=== PATIENT | male | born 1985 | race Two or more races ===

== ENCOUNTER 2023-11-02 23:41 | Inpatient (IN) | payer MEDICAID ==
[~2023-11-02] VITALS: Ht 144.8 cm; Wt 59.4 kg
[2023-11-03] VITALS (7 sets, daily range): BP systolic 120–147; BP diastolic 71–92; PULSE 78–99; RESP 16–18; TEMP 97.8–98.6; O2SAT 97–100
[2023-11-03 01:33] LABS: ANION GAP 14 mmol/L (8-16); CALCIUM, TOTAL 9.4 mg/dL (8.8-10.5); CARBON DIOXIDE 25 mmol/L (22-29); CHLORIDE 99 mmol/L (98-107); CREATININE 0.88 mg/dL (0.60-1.30); GLOMERULAR FILTR. RATE CALC > 60 mL/min (>60); GLUCOSE,RANDOM 325 mg/dL (70-110); POTASSIUM 3.5 mmol/L (3.5-5.1); SODIUM SERUM 138 mmol/L (136-145); UREA NITROGEN, BLOOD 10 mg/dL (7-18)
[2023-11-03 01:39] LABS: ALANINE AMINOTRANSFERASE 35 U/L (12-78); ALBUMIN 3.9 g/dL (3.4-5.0); ALKALINE PHOSPHATASE 115 U/L (46-116); ASPARTATE AMINOTRANSFERASE 47 U/L (15-37); BASOPHILS % (AUTO) 0.3 % (0.0-2.0); BILIRUBIN,TOTAL 0.2 mg/dL (0.1-1.0); EOSINOPHILS % (AUTO) 0.5 % (1.0-6.0); HEMATOCRIT 45.1 % (41-53); HEMOGLOBIN 15.6 g/dL (13.5-17.5); LYMPHOCYTES % (AUTO) 27.5 % (22.0-44.0); MEAN CORPUSCULAR HEMOGLOBIN 33.7 pg (26.0-34.0); MEAN CORPUSCULAR HGB CONC 34.6 G/dL (31.0-37.0); MEAN CORPUSCULAR VOLUME 98 fL (80-100); MONOCYTES # (AUTO) 0.7 K/uL (0.1-1.0); MONOCYTES % (AUTO) 9.2 % (2.0-9.0); NEUTROPHILS # (AUTO) 4.6 K/uL (1.8-7.7); NEUTROPHILS % (AUTO) 62.5 % (40.0-70.0); PLATELET COUNT (AUTO) 224 K/uL (150-450); RED BLOOD CELL COUNT(AUTO) 4.62 MIL/uL (4.50-5.90); RED CELL DISTRIBUTION WIDTH 11.5 % (11.5-14.5); TOTAL PROTEIN, SERUM 7.9 g/dL (6.4-8.2); WHITE BLOOD COUNT (AUTO) 7.3 K/uL (4.5-11.0)
[2023-11-03 01:40] LABS: PH,URINE DRUG SCREEN 5.5 (5.0-8.0)
[2023-11-03 01:41] LABS: ALCOHOL, BLOOD (SERUM) 231 mg/dL (0-10)
[2023-11-03 01:44] LABS: ALCOHOL, URINE DRUG SCREEN POSITIVE (NEGATIVE); AMPHET/METH SCREEN,URINE NEGATIVE (NEGATIVE); BARBITURATE SCREEN, URINE NEGATIVE (NEGATIVE); BENZODIAZEPINES SCREEN,URINE NEGATIVE (NEGATIVE); CANNABINOID SCREEN,URINE NEGATIVE (NEGATIVE); COCAINE SCREEN,URINE NEGATIVE (NEGATIVE); METHADONE SCREEN, URINE NEGATIVE (NEGATIVE); OPIATE SCREEN,URINE NEGATIVE (NEGATIVE); PHENCYCLIDINE SCREEN,URINE NEGATIVE (NEGATIVE)
[2023-11-03] MEDS: INSULIN REGULAR, HUMAN 100 UNITS/ML SQ ONE (04:20)
[2023-11-03 06:24] LABS: COVID AG,FIA SOURCE NASAL SWAB
[2023-11-03] MEDS ORDERED: HALOPERIDOL 5 MG TABLET PO PRN (06:45)
[2023-11-03 06:53] LABS: SARS-COV2 (COVID) ANTIGEN,FIA Negative (Negative)
[2023-11-03 11:21] LABS: GLUCOMETER DEV NAME(LOC) BV2S.; GLUCOSE,POINT OF CARE 202 MG/DL (70-110)
[2023-11-03 12:05] LABS: GLUCOMETER DEV NAME(LOC) ERT.5; GLUCOSE,POINT OF CARE 208 MG/DL (70-110)
[2023-11-03] MEDS: INFLUENZA VIRUS VACCINE QVS 2023-24 (6MO+)/PF 60 MCG/0.5 ML SYRINGE IM. ONE (12:45)
[2023-11-03] MEDS ORDERED: GLUCAGON,HUMAN RECOMBINANT 1 MG VIAL IM PRN (13:15)
[2023-11-03] MEDS: INSULIN LISPRO 100 UNITS/ML SQ PRN (16:50)
[2023-11-03 20:46] LABS: GLUCOMETER DEV NAME(LOC) BV2S.; GLUCOSE,POINT OF CARE 317 MG/DL (70-110)
[2023-11-03] MEDS: ZOLPIDEM TARTRATE 10 MG TABLET PO PRN (21:17)
[2023-11-03 21:35] LABS: GLUCOMETER DEV NAME(LOC) BV2S.; GLUCOSE,POINT OF CARE 284 MG/DL (70-110)
[2023-11-04] MEDS: LORazepam 2 MG TABLET PO PRN (01:34)
[2023-11-04 01:45] VITALS: BP 128/92; PULSE 62; RESP 17; TEMP 97.8; O2SAT 100
[2023-11-04 05:45] VITALS: BP 133/76; PULSE 76; RESP 18; TEMP 97; O2SAT 99
[2023-11-04 06:21] LABS: GLUCOMETER DEV NAME(LOC) BV2S.; GLUCOSE,POINT OF CARE 213 MG/DL (70-110)
[2023-11-04 08:11] LABS: APPEARANCE,URINE CLEAR (CLEAR); BILIRUBIN,URINE NEGATIVE (NEGATIVE); COLOR,URINE LIGHT YELLOW (YELLOW); GLUCOSE, URINE (UA) >=1000 mg/dL (NEGATIVE); KETONES,URINE TRACE mg/dL (NEGATIVE); LEUKOCYTE ESTERASE ,URINE NEGATIVE (NEGATIVE); NITRATE,URINE NEGATIVE (NEGATIVE); OCCULT BLOOD,URINE NEGATIVE (NEGATIVE); PROTEIN,URINE TRACE mg/dL (NEGATIVE); SPECIFIC GRAVITIY, URINE 1.027 (1.003-1.030); UROBILINOGEN,URINE <=1.0 mg/dL (<=1.0)
[2023-11-04 08:16] VITALS: BP 120/70; PULSE 80; RESP 18; TEMP 98; O2SAT 100
[2023-11-04 08:21] LABS: ALCOHOL, URINE DRUG SCREEN NEGATIVE (NEGATIVE); AMPHET/METH SCREEN,URINE NEGATIVE (NEGATIVE); BARBITURATE SCREEN, URINE NEGATIVE (NEGATIVE); BENZODIAZEPINES SCREEN,URINE NEGATIVE (NEGATIVE); CANNABINOID SCREEN,URINE NEGATIVE (NEGATIVE); COCAINE SCREEN,URINE NEGATIVE (NEGATIVE); METHADONE SCREEN, URINE NEGATIVE (NEGATIVE); OPIATE SCREEN,URINE NEGATIVE (NEGATIVE); PHENCYCLIDINE SCREEN,URINE NEGATIVE (NEGATIVE)
[2023-11-04 09:06] LABS: BACTERIA,URINE None Seen /HPF (None Seen); RBC,URINE None Seen /HPF (0-2); WBC,URINE None Seen /HPF (0-5)
[2023-11-04 10:38] VITALS: BP 130/88; PULSE 77; RESP 16; TEMP 97.6; O2SAT 99
[2023-11-04] MEDS: INSULIN LISPRO 100 UNITS/ML SQ ONE (11:32)
[2023-11-04 12:11] LABS: GLUCOMETER DEV NAME(LOC) BV2S.; GLUCOSE,POINT OF CARE 440 MG/DL (70-110)
[2023-11-04 12:56] LABS: GLUCOMETER DEV NAME(LOC) BV2S.; GLUCOSE,POINT OF CARE 258 MG/DL (70-110)
[2023-11-04 14:07] VITALS: BP 140/84; PULSE 82; RESP 16; TEMP 97.6; O2SAT 97
[2023-11-04 16:36] LABS: GLUCOMETER DEV NAME(LOC) BV2S.; GLUCOSE,POINT OF CARE 237 MG/DL (70-110)
[2023-11-04] MEDS: MetFORMIN HCL 850 MG TABLET PO SCH (16:56)
[2023-11-04 20:16] VITALS: BP 149/83; PULSE 63; RESP 17; TEMP 97.5; O2SAT 100
[2023-11-04 20:56] LABS: GLUCOMETER DEV NAME(LOC) BV2S.; GLUCOSE,POINT OF CARE 305 MG/DL (70-110)
[2023-11-05 07:01] LABS: GLUCOMETER DEV NAME(LOC) BV2S.; GLUCOSE,POINT OF CARE 167 MG/DL (70-110)
[2023-11-05 08:58] VITALS: BP 119/83; PULSE 65; RESP 18; TEMP 97.7; O2SAT 99
[2023-11-05 11:36] LABS: GLUCOMETER DEV NAME(LOC) BV2S.; GLUCOSE,POINT OF CARE 221 MG/DL (70-110)
[2023-11-05] MEDS ORDERED: METF-1185 PO (20:58)
[2023-11-06 07:07] LABS: HEPATITIS C AB (EIA) Non Reactive (Non Reactive)
[2023-11-06] MEDS ORDERED: METF-1185 PO (14:20)
== END 2023-11-05 16:15 | disposition home or self-care (01) | DRG 751 ==
LOC: EMS 23:42 → B2S 11-03 07:19
PROVIDERS: ADMIT Psychiatry & Neurology Child & Adolescent Psychiatry; ATTEND Psychiatry & Neurology Child & Adolescent Psychiatry
DX: F33.2 Major depressive disorder, recurrent severe without psychotic features (principal); E11.9 Type 2 diabetes mellitus without complications; F41.9 Anxiety disorder, unspecified; G47.00 Insomnia, unspecified; F10.129 Alcohol abuse with intoxication, unspecified; Z20.822 Contact with and (suspected) exposure to COVID-19
CPT/HCPCS: 80053; 80307; 81001; 82962; 83036; 85025; 86803; 87340; 99285; G0480; J1815